=== PATIENT | female | born 1975 | race Caucasian/White ===

== ENCOUNTER 2018-08-22 14:57 | Observation (INO) | payer MEDICAID ==
[2018-08-22 15:20] VITALS: BMI 32.9
--- NOTE | 2018-08-22 15:37 | C.PDOC ---
History Of Present Illness 43 y/o female presents to the emergency department complaining of constant right breast pain that started a few days ago. Patient denies fever, nipple discharge, chest pain, SOB, or other complaints. Patient has history of biopsy from the same breast a few years ago. Time Seen by Provider: 08/22/18 15:05 Chief Complaint (Nursing): Breast Problem History Per: Patient History/Exam Limitations: no limitations Onset/Duration Of Symptoms: Days Current Symptoms Are (Timing): Still Present Past Medical History Reviewed: Historical Data, Nursing Documentation, Vital Signs Vital Signs: Last Vital Signs Temp 98 F 08/22/18 15:02 Pulse 79 08/22/18 15:02 Resp 18 08/22/18 15:02 BP 132/88 08/22/18 15:02 Pulse Ox 99 08/22/18 15:02 - Medical History PMH: No Chronic Diseases Surgical History: Appendectomy, Cholecystectomy Family History: States: No Known Family Hx - Social History Hx Tobacco Use: No Hx Alcohol Use: No Hx Substance Use: No - Immunization History Hx Tetanus Toxoid Vaccination: No Hx Influenza Vaccination: No Hx Pneumococcal Vaccination: No Review Of Systems Except As Marked, All Systems Reviewed And Found Negative. Constitutional: Negative for: Fever, Chills Cardiovascular: Negative for: Chest Pain Respiratory: Negative for: Shortness of Breath Musculoskeletal: Positive for: Other (Right breast pain, no nipple discharge) Skin: Negative for: Rash Physical Exam - Physical Exam Appears: Non-toxic, No Acute Distress Skin: Warm, Dry Head: Atraumatic, Normacephalic Eye(s): bilateral: Normal Inspection Oral Mucosa: Moist Neck: Supple Chest: No Deformity, Other (palpable mass around 9 o clock, tender to palpation, no erythema, no nipple discharge) Cardiovascular: Rhythm Regular, No Murmur Respiratory: Normal Breath Sounds, No Rales, No Rhonchi, No Wheezing Gastrointestinal/Abdominal: Soft, No Tenderness Extremity: Bilateral: Atraumatic, Normal ROM Neurological/Psych: Oriented x3, Normal Speech ED Course And Treatment - Laboratory Results Result Diagrams: 08/22/18 15:57 08/22/18 15:57 O2 Sat by Pulse Oximetry: 99 (RA) Pulse Ox Interpretation: Normal Medical Decision Making Medical Decision Making: Plan: --Labs Dr. Schulz called Dr. Starr to see the patient. Dr. Starr will see patient in the ER. Dr. Starr examined the pt, in his opinion the pt has an abscess of the breas t, recommends vancomycin and hospital admission to Dr. Schulz. Disposition Discussed With : Joyce Schulz Doctor Will See Patient In The: Hospital - Disposition Disposition: HOSPITALIZED Disposition Time: 14:00 Condition: STABLE - POA Present On Arrival: None - Clinical Impression Clinical Impression: Abscess of breast, Breast mass - Scribe Statement The provider has reviewed the documentation as recorded by the Estella Almonte Provider Attestation: All medical record entries made by the Estella were at my direction and personally dictated by me. I have reviewed the chart and agree that the record accurately reflects my personal performance of the history, physical exam, medical decision making, and the department course for this patient. I have also personally directed, reviewed, and agree with the discharge instructions and disposition.
[2018-08-22 16:01] LABS: BASO # 0.1 K/uL (0.0-0.2); BASO % 1.1 % (0.0-2.0); EOS # 0.1 K/uL (0.0-0.7); EOS % 2.9 % (0.0-4.0); HEMOGLOBIN 13.8 g/dL (11.0-16.0); LYMPH # 2.4 K/uL (1.0-4.3); LYMPH % 47.1 % (20.0-40.0); MEAN CORPUSCULAR HEMOGLOBIN 28.6 pg (27.0-31.0); MEAN CORPUSCULAR HGB CONC 33.6 g/dL (33.0-37.0); MEAN PLATELET VOLUME 8.4 fL (7.2-11.7); MONO # 0.3 K/uL (0.0-0.8); MONO % 6.7 % (0.0-10.0); NEUT # 2.1 K/uL (1.8-7.0); NEUT % 42.2 % (50.0-75.0); NRBC % 0.1 % (0.0-2.0); RBC 4.83 Mil/uL (3.80-5.20); RED CELL DISTRIBUTION WIDTH 14.3 % (11.5-14.5)
[2018-08-22 16:09] LABS: INR 1.2
[2018-08-22 16:11] LABS: ALB/GLOB RATIO 1.6 (1.0-2.1); ALBUMIN 4.3 g/dL (3.5-5.0); BLOOD UREA NITROGEN 8 mg/dL (7-17); GFR NON-AFRICAN AMERICAN > 60
[2018-08-22 16:27] LABS: ALT/SGPT 27 U/L (9-52); AST/SGOT 29 U/L (14-36)
[2018-08-22] MEDS ORDERED: Vancomycin 1 GM 1 GM/250 ML BAG IVPB ONE (17:06)
[2018-08-23] MEDS: Vancomycin 1 gm/NS 200 ml 1 GM/200 ML BAG IVPB SCH ×2 (05:37→17:32)
[2018-08-23] MEDS: Metoprolol Succinate 50 mg XL Tab PO SCH (09:02)
[2018-08-23] MEDS ORDERED: Propofol 10 mg/ml Inj (20 ML) ONE (10:54)
[2018-08-23] MEDS ORDERED: Bupivacaine 0.25% 20 ML INJ IJ ONE (11:38)
[2018-08-23] MEDS ORDERED: Lidocaine Hydrochloride 0 ML INJ ONE (11:38)
[2018-08-23] MEDS ORDERED: HYDROmorphone 0.5 mg/0.5 ml ISec IVP PRN (12:04)
[2018-08-23] MEDS ORDERED: Oxycodone/Acetaminophen 5/325 mg Tab PO PRN (12:14)
[2018-08-23] MEDS ORDERED: Lactated Ringer's 1,000 ML IV SCH (12:15)
--- NOTE | 2018-08-23 14:20 | HP ---
HISTORY OF PRESENT ILLNESS: Zane Oreilly is a 43-year-old female admitted to the hospital complaining of right breast pain and mass. The patient had symptoms for few days, increasing, pain extending to the back. She came to the office, with an enlarged, indurated mass in the right breast and was advised emergency seen by surgeon advised admission. The patient has history of prolactinoma, history of hypertension and takes Toprol-XL. PHYSICAL EXAMINATION: GENERAL: The patient is awake, alert, oriented. VITAL SIGNS: Temperature is 98, pulse is 75, blood pressure 120/78. HEENT: Within normal limits. NECK: Supple. CHEST: Symmetrical. There is a right breast mass in the mid right breast, tender to touch. HEART: Regular. ABDOMEN: Soft. EXTREMITIES: No edema. IMPRESSION: Right breast abscess, rule out malignancy. PLAN: The patient to get bed rest, supportive care, antibiotic, ID and surgical consults. Joyce Schulz MD
--- NOTE | 2018-08-23 15:50 | CP.PCM.CON ---
History of Present Illness - History of Present Illness History of Present Illness: 43 y/o female admitted via ER with right breast swelling and pain 'denies fever chills or drainage started on empiric IV antibiotics Has hx of breast biopsy same side several years back - Medical History PMH: No Chronic Diseases Surgical History: Appendectomy, Cholecystectomy Breast Biopsy Family History: States: No Known Family Hx Review of Systems - Review of Systems All systems: reviewed and no additional remarkable complaints except - Constitutional Constitutional: As Per HPI - EENT Eyes: absent: As Per HPI, Blind Spots, Blurred Vision, Change in Vision, Decreased Night Vision, Diplopia, Discharge, Dry Eye, Exophthalmos, Floaters, Irritation, Itchy Eyes, Loss of Peripheral Vision, Pain, Photophobia, Requires Corrective Lenses, Sees Flashes, Spots in Vision, Tunnel Vision, Other Visual Disturbances, Loss of Vision, Other Ears: absent: As Per HPI, Decreased Hearing, Ear Discharge, Ear Pain, Tinnitus, Abnormal Hearing, Disequilibrium, Dizziness, Other Nose/Mouth/Throat: absent: As Per HPI, Epistaxis, Nasal Congestion, Nasal Discharge, Nasal Obstruction, Nasal Trauma, Nose Pain, Post Nasal Drip, Sinus Pain, Sinus Pressure, Bleeding Gums, Change in Voice, Dental Pain, Dry Mouth, Dysphagia, Halitosis, Hoarsness, Lip Swelling, Mouth Lesions, Mouth Pain, Odynophagia, Sore Throat, Throat Swelling, Tongue Swelling, Facial Pain, Neck Pain, Neck Mass, Other - Breasts Breasts: As Per HPI. absent: Nipple Discharge - Cardiovascular Cardiovascular: absent: As Per HPI, Acrocyanosis, Chest Pain, Chest Pain at Rest, Chest Pain with Activity, Claudication, Diaphoresis, Dyspnea, Dyspnea on Exertion, Edema, Irregular Heart Rhythm, Pain Radiating to Arm/Neck/Jaw, Leg Edema, Leg Ulcers, Lightheadedness, Orthopnea, Palpitations, Paroxysmal Nocturnal Dyspnea, Pedal Edema, Radiating Pain, Rapid Heart Rate, Slow Heart Rate, Syncope, Other - Respiratory Respiratory: absent: As Per HPI, Cough, Dyspnea, Hemoptysis, Dyspnea on Exertion, Wheezing, Snoring, Stridor, Pain on Inspiration, Chest Congestion, Excessive Mucous Production, Change in Mucous Color, Pain with Coughing, Other - Gastrointestinal Gastrointestinal: absent: As Per HPI, Abdominal Pain, Belching, Bloating, Change in Bowel Habits, Change in Stool Character, Coffee Ground Emesis, Constipation, Cramping, Diarrhea, Dyspepsia, Dysphagia, Early Satiety, Excessive Flatus, Fecal Incontinence, Heartburn, Hematemesis, Hematochezia, Loose Stools, Melena, Nausea, Odynophagia, Temesmus, Vomiting, Other - Genitourinary Genitourinary: absent: As Per HPI, Change in Urinary Stream, Difficulty Urinating, Dysuria, Flank Pain, Hematuria, Pyuria, Nocturia, Urinary Incontinence, Urinary Frequency, Urinary Hesitance, Urinary Urgency, Voiding Freq/Small Amts, Freq UTI, Hx Renal/Bladder Calculi, Hx /Renal Surgery, Bladder Distension, Other - Reproductive: Female Reproductive:Female: absent: As Per HPI, Amenorrhea, Amenorrhea/ Control, Currently Menstual, Cycle <21 Days, Cycle >35 Days, Cycle Variable, Menses 1-7 Days, Menses >/= 8 Days, Menses Variable, Cycle > 4 Weeks Between, No Menses for 6 Months, Heavy Menses, Light Menses, Normal Menses, Spotting Between Cycles, S/P Hysterectomy, Menopausal, Post Menopausal, Premenarche, Abnormal Vaginal Bleeding, Dysmenorrhea, Dyspareunia, Genital Lesions, Genital Pruritis, Pelvic Pain, Prolapse Symptoms, Sexual Dysfunction, Vaginal Discharge, Vaginal Dryness, Vaginal Odor, Vaginal Pruritis, Other - Menstruation Menstruation: absent: As Per HPI, Amenorrhea, Amenorrhea/ Control, Currently Menstual, Cycle <21 Days, Cycle >35 Days, Cycle Variable, Menses 1-7 Days, Menses >/= 8 Days, Menses Variable, Cycle > 4 Weeks Between, No Menses for 6 Months, Heavy Menses, Light Menses, Normal Menses, Spotting Between Cycles, S/P Hysterectomy, Menopausal, Post Menopausal, Premenarche, Abnormal Vaginal Bleeding, Dysmenorrhea, Other - Musculoskeletal Musculoskeletal: absent: As Per HPI, Abnormal Gait, Arthralgias, Atrophy, Back Pain, Deformity, Joint Swelling, Limited Range of Motion, Loss of Height, Muscle Cramps, Muscle Weakness, Myalgias, Neck Pain, Numbness, Radiating Pain into Limb, Stiffness, Tingling, Other - Integumentary Integumentary: As Per HPI - Neurological Neurological: absent: As Per HPI, Abnormal Gait, Abnormal Hearing, Abnormal Movements, Abnormal Speech, Behavioral Changes, Burning Sensations, Confusion, Convulsions, Disequilibrium, Dizziness, Numbness, Focal Weakness, Frequent Falls, Headaches, Lack of Coordination, Loss of Vision, Memory Loss, Paresthesias, Radicular Pain, Restless Legs, Sensory Deficit, Syncope, Tingling, Tremor, Vertigo, Weakness, Other Visual Disturbances, Other - Psychiatric Psychiatric: absent: As Per HPI, Abnormal Sleep Pattern, Anhedonia, Anxiety, Auditory Hallucinations, Behavioral Changes, Change in Appetite, Change in Libido, Confusion, Depression, Difficulty Concentrating, Hallucinations, Homicidal Ideation, Hopelessness, Irritability, Memory Loss, Mood Swings, Panic Attacks, Paranoia, Suicidal Ideation, Visual Hallucinations, Tactile Hallucinations, Other - Endocrine Endocrine: absent: As Per HPI, Change in Body Appearance, Change in Libido, Cold Intolorance, Deepening of Voice, Excessive Sweating, Fatigue, Flushing, Heat Intolorance, Increase in Ring/Shoe/Hat Size, Palpitations, Polydipsia, Polyphagia, Polyuria, Other - Hematologic/Lymphatic Hematologic: absent: As Per HPI, Easy Bleeding, Easy Bruising, Lymphadenopathy, Other Past Patient History - Past Social History Smoking Status: Never Smoked - PSYCHIATRIC Hx Substance Use: No - SURGICAL HISTORY Hx Appendectomy: Yes Hx Cholecystectomy: Yes Meds Allergies/Adverse Reactions: Allergies Allergy/AdvReac Type Severity Reaction Status Date / Time No Known Allergies Allergy Verified 08/22/18 15:00 - Medications Medications: Current Medications Vancomycin/Sodium Chloride (Vancomycin 1 Gm/Ns 200 Ml) 1 gm in 200 mls @ 133.333 mls/hr IVPB Q12H [facility]; Protocol Last Admin: 08/23/18 05:37 Dose: 133.333 mls/hr Lactated Ringer's (Lactated Ringer's) 1,000 mls @ 100 mls/hr IV .Q10H [facility] Ketorolac Tromethamine (Toradol) 30 mg IVP Q6 WOO Last Admin: 08/23/18 12:33 Dose: 30 mg Metoprolol Succinate (Toprol Xl) 50 mg PO DAILY [facility] Last Admin: 08/23/18 09:02 Dose: 50 mg Oxycodone/Acetaminophen (Percocet 5/325 Mg Tab) 2 tab PO Q4H PRN PRN Reason: pain Stop: 08/26/18 12:15 Physical Exam - Constitutional Appears: Non-toxic, Chronically Ill - Head Exam Head Exam: NORMOCEPHALIC - Eye Exam Eye Exam: absent: Scleral icterus Pupil Exam: NORMAL ACCOMODATION - ENT Exam ENT Exam: Mucous Membranes Dry, Normal External Ear Exam - Neck Exam Neck exam: Negative for: Lymphadenopathy - Respiratory Exam Respiratory Exam: Decreased Breath Sounds, Clear to Auscultation Bilateral - Cardiovascular Exam Cardiovascular Exam: REGULAR RHYTHM, +S1, +S2 - GI/Abdominal Exam GI & Abdominal Exam: Diminished Bowel Sounds, Soft. absent: Tenderness - Rectal Exam Rectal Exam: Deferred - Exam Exam: NORMAL INSPECTION - Extremities Exam Extremities exam: Positive for: pedal pulses present. Negative for: calf tenderness, pedal edema, tenderness - Back Exam Back exam: CVA tenderness (R). absent: CVA tenderness (L) (x) - Neurological Exam Neurological exam: Alert, CN II-XII Intact, Oriented x3, Reflexes Normal - Psychiatric Exam Psychiatric exam: Depressed - Skin Skin Exam: Dry Results - Vital Signs Recent Vital Signs: Last Vital Signs Temp 97.6 F 08/23/18 13:41 Pulse 74 08/23/18 13:41 Resp 16 08/23/18 13:41 BP 107/69 08/23/18 13:41 Pulse Ox 99 08/23/18 14:20 - Labs Result Diagrams: 08/22/18 15:57 08/22/18 15:57 Labs: Laboratory Results - last 24 hr 08/22/18 08/22/18 08/22/18 15:57 15:57 15:57 WBC 5.0 RBC 4.83 Hgb 13.8 Hct 41.1 MCV 85.0 MCH 28.6 MCHC 33.6 RDW 14.3 Plt Count 271 MPV 8.4 Neut % (Auto) 42.2 L Lymph % (Auto) 47.1 H [place] % (Auto) 6.7 Eos % (Auto) 2.9 Baso % (Auto) 1.1 Neut # (Auto) 2.1 Lymph # (Auto) 2.4 [place] # (Auto) 0.3 Eos # (Auto) 0.1 Baso # (Auto) 0.1 PT 13.0 H INR 1.2 APTT 31 Sodium 136 Potassium 4.2 Chloride 103 Carbon Dioxide 26 Anion Gap 11 BUN 8 Creatinine 0.5 L Est GFR ( Amer) > 60 Est GFR (Non-Af Amer) > 60 Random Glucose 90 Calcium 9.0 Total Bilirubin 0.6 AST 29 ALT 27 Alkaline Phosphatase 87 Total Protein 7.0 Albumin 4.3 Globulin 2.7 Albumin/Globulin Ratio 1.6 Urine HCG, Qual 08/23/18 08:30 WBC RBC Hgb Hct MCV MCH MCHC RDW Plt Count MPV Neut % (Auto) Lymph % (Auto) [place] % (Auto) Eos % (Auto) Baso % (Auto) Neut # (Auto) Lymph # (Auto) [place] # (Auto) Eos # (Auto) Baso # (Auto) PT INR APTT Sodium Potassium Chloride Carbon Dioxide Anion Gap BUN Creatinine Est GFR ( Amer) Est GFR (Non-Af Amer) Random Glucose Calcium Total Bilirubin AST ALT Alkaline Phosphatase Total Protein Albumin Globulin Albumin/Globulin Ratio Urine HCG, Qual Negative Assessment & Plan (1) Abscess of breast Status: Acute (2) Breast mass Status: Acute - Assessment and Plan (Free Text) Assessment: may need I and D cont empiric IV antibiotics
[2018-08-23] MEDS: Pantoprazole 40 mg EC Tab PO SCH (17:31)
[2018-08-24 03:09] VITALS: RESP 20
[2018-08-24] MEDS: Vancomycin 1 gm/NS 200 ml 1 GM/200 ML BAG IVPB SCH (05:11)
--- NOTE | 2018-08-24 07:34 | OP ---
PROCEDURE DATE: 08/23/2018 PREOPERATIVE DIAGNOSIS: Right breast mass. POSTOPERATIVE DIAGNOSIS: Infected mastitis versus breast carcinoma, right breast and right chest wall mass. PROCEDURE PERFORMED: Right breast exploration with excision of inflamed right breast/right chest wall mass. SURGEON: Mateusz Starr MD ANESTHESIA: General. BLOOD LOSS: 50 mL. POSTOPERATIVE CONDITION: Stable. INDICATIONS FOR SURGERY: This is a 43-year-old female who presents with a painful right breast mass, suspicious for an abscess. She is taken to the OR for presumptive excision and drainage. GROSS FINDINGS: There was a 5 x 4 cm mass in the breast. It did not contain pus; however, it was drained and removed. Cultures were taken at the time of surgery. There was also a cyst associated with it which was also removed. DESCRIPTION OF THE PROCEDURE: The patient was taken to the operating room. General anesthesia was administered. The right chest wall and breast were prepped and draped. An incision was made over the mass. Tissue flaps were raised. The mass was excised into the chest wall fascia. Bleeding was controlled using Bovie. Larger blood vessels were repaired. The wound was irrigated with saline. Tissue flap closure was performed. Marcaine 0.25% was injected for pain control postoperatively. The patient tolerated the procedure well and returned to recovery room in stable condition. Mateusz Starr MD
--- NOTE | 2018-08-24 08:03 | CP.PCM.PN ---
Subjective - Date & Time of Evaluation Date of Evaluation: 08/24/18 Time of Evaluation: 08:00 - Subjective Subjective: Medicine Progress for Dr. Schulz's Service Patient was seen and examined at bedside. Patient states she still has pain on the right side of breast s/p I & D. Patient denies chest pain, shortness of breath, nausea, vomiting, fever, chills, nausea or vomiting. Objective - Vital Signs/Intake and Output Vital Signs (last 24 hours): Temp Pulse Resp BP Pulse Ox 98.2 F 95 H 20 99/52 L 97 08/24/18 05:00 08/24/18 05:00 08/24/18 05:00 08/24/18 05:00 08/24/18 05:00 Intake and Output: 08/24/18 08/24/18 06:59 18:59 Intake Total 1040 Balance 1040 - Medications Medications: Current Medications Vancomycin/Sodium Chloride (Vancomycin 1 Gm/Ns 200 Ml) 1 gm in 200 mls @ 133.333 mls/hr IVPB Q12H [facility]; Protocol Last Admin: 08/24/18 05:11 Dose: 133.333 mls/hr Lactated Ringer's (Lactated Ringer's) 1,000 mls @ 100 mls/hr IV .Q10H [facility] Last Admin: 08/24/18 03:48 Dose: 100 mls/hr Ketorolac Tromethamine (Toradol) 30 mg IVP Q6 [facility] Last Admin: 08/24/18 07:49 Dose: 30 mg Metoprolol Succinate (Toprol Xl) 50 mg PO DAILY [facility] Last Admin: 08/23/18 09:02 Dose: 50 mg Ondansetron HCl (Zofran Inj) 4 mg IVP Q6 PRN PRN Reason: Nausea/Vomiting Last Admin: 08/23/18 16:49 Dose: 4 mg Oxycodone/Acetaminophen (Percocet 5/325 Mg Tab) 2 tab PO Q4H PRN PRN Reason: pain Stop: 08/26/18 12:15 Pantoprazole Sodium (Protonix Ec Tab) 40 mg PO DAILY [facility] Last Admin: 08/23/18 17:31 Dose: 40 mg - Labs Labs: 08/22/18 15:57 08/22/18 15:57 PT 13.0 SECONDS (9.7-12.2) H 08/22/18 15:57 INR 1.2 08/22/18 15:57 APTT 31 SECONDS (21-34) 08/22/18 15:57 - Constitutional Appears: No Acute Distress - Head Exam Head Exam: ATRAUMATIC, NORMAL INSPECTION - Eye Exam Eye Exam: EOMI, Normal appearance - ENT Exam ENT Exam: Mucous Membranes Moist - Respiratory Exam Respiratory Exam: Clear to Ausculation Bilateral, NORMAL BREATHING PATTERN - Cardiovascular Exam Cardiovascular Exam: REGULAR RHYTHM, +S1, +S2 - GI/Abdominal Exam GI & Abdominal Exam: Soft, Normal Bowel Sounds. absent: Tenderness - Extremities Exam Extremities Exam: Normal Inspection - Neurological Exam Neurological Exam: Alert, Awake, Oriented x3 - Psychiatric Exam Psychiatric exam: Normal Affect - Skin Additional comments: right breast - tender, warm - dressing c/d/i Assessment and Plan - Assessment and Plan (Free Text) Assessment: Right Breast Abscess - Surgery Consult: Dr. Starr --> help appreciated * s/p I&D 08/23/18 - ID Consult: Dr. Tidwell --> help appreciated * Vancomycin 1gm IV q12h History of HTN - Continue home medication Metoprolol Succinate 50mg po daily Patient discharged home per Dr. Schulz and Dr. Starr Please continue home medications. Please start new medications: Percocet 1 tablet every 6 hours as needed for pain Zofran 8mg one tablet every 8 hours as needed for nausea. Bactrim one tablet twice a day for 7 days. Please follow up with Dr. Starr 1 week.. Please follow up with Dr. Schulz in 1-2 week Case discussed with Dr. Jazz Huntley PGY-2
[2018-08-24 09:09] VITALS: BP 115/80; PULSE 80; TEMP 98; O2SAT 95
[2018-08-24] MEDS: Metoprolol Succinate 50 mg XL Tab PO SCH (09:29)
[2018-08-24] MEDS: Pantoprazole 40 mg EC Tab PO SCH (09:30)
[2018-08-24 11:36] LABS: BASO % 0.5 % (0.0-2.0); EOS # 0.1 K/uL (0.0-0.7); EOS % 1.4 % (0.0-4.0); HEMOGLOBIN 12.5 g/dL (11.0-16.0); LYMPH # 2.2 K/uL (1.0-4.3); LYMPH % 34.9 % (20.0-40.0); MEAN CELL VOLUME 86.7 fL (81.0-99.0); MEAN CORPUSCULAR HEMOGLOBIN 29.9 pg (27.0-31.0); MEAN CORPUSCULAR HGB CONC 34.5 g/dL (33.0-37.0); MEAN PLATELET VOLUME 8.5 fL (7.2-11.7); MONO # 0.5 K/uL (0.0-0.8); MONO % 8.7 % (0.0-10.0); NEUT # 3.4 K/uL (1.8-7.0); NEUT % 54.5 % (50.0-75.0); NRBC % 0.1 % (0.0-2.0); RBC 4.19 Mil/uL (3.80-5.20); RED CELL DISTRIBUTION WIDTH 14.1 % (11.5-14.5); WHITE BLOOD COUNT 6.2 K/uL (4.8-10.8)
[2018-08-24 12:00] LABS: ALB/GLOB RATIO 1.4 (1.0-2.1); ALBUMIN 3.5 g/dL (3.5-5.0); ALT/SGPT 25 U/L (9-52); AST/SGOT 19 U/L (14-36); BLOOD UREA NITROGEN 8 mg/dL (7-17); CALCIUM 8.7 mg/dl (8.6-10.4); GFR NON-AFRICAN AMERICAN > 60
[2018-08-24] MEDS ORDERED: Potassium Chloride 20 mEq ER Tab PO ONE (12:54)
--- NOTE | 2018-08-25 15:36 | CARD ---
APPROVED REPORT Date of service: 08/22/2018 EKG Measurement Heart [id number] <Conclusion> Normal sinus rhythm Low voltage QRS Borderline ECG
== END 2018-08-24 14:32 | disposition home or self-care (01) ==
LOC: C.ER 14:57 → C.9E 16:52 → C.6T 19:02
PROVIDERS: ADMIT Internal Medicine Pulmonary Disease; ATTEND Internal Medicine Pulmonary Disease
DX: N61.1 Abscess of the breast and nipple (principal); I10 Essential (primary) hypertension
CPT/HCPCS: 19120; 36415; 80053; 83735; 84100; 84703; 85025; 85610; 85730; 87040; 87070; 88305; 88307; 93005; 96365; 96366; 96375; 96376; 97110; 97116; 97161; 97166; 99285; G0378; G8978; G8979; G8980; G8987; G8988; J1170; J1885; J2001; J2405; J2704; J2765; J3010; J3370; J7120